=== PATIENT | female | born 1975 | race Caucasian/White ===

== ENCOUNTER 2023-11-15 09:44 | Emergency (ER) | payer OTHER, SELFPAY ==
[2023-11-15 09:48] VITALS: BP 117/71
[2023-11-15 10:01] VITALS: BMI 30.3
[2023-11-15 10:07] VITALS: BP 109/69
--- NOTE | 2023-11-15 10:38 | ED.GENMED ---
History of Present Illness
General
Chief Complaint: Abdominal Pain
Source: patient and spouse
Exam Limitations: none
Time Seen by Provider: 11/15/23 09:59
History of Present Illness
History of Present Illness:
48-year-old female presents not feeling well. She states last week had mild headache that kind of persisted she took some Advil seem to help. Over the weekend she had severe lower abdominal pain. It seemed to get a little better but last night
again had pain in the left flank area. The pain is since improved but she does feel pressure down in her vaginal area. She does have a little bit dysuria and urinary frequency. Patient admits that she also felt little confused and disoriented.
No motor weakness. No vomiting. She did have a little bit of diarrhea over the weekend. Patient states she went to dinner last night and felt well.
Past History
Past History
ED Past Medical History: COPD
ED Past Surgical History: Gynecological
Social History
Tobacco: Smoker
Alcohol: Occasional
Drug: None
Personal:
Living: with family
Employment: Employed
Family History
Family History: Other (Noncontributory )
Phy Exam
Physical Exam
Physical Exam:
CONSTITUTIONAL Patient alert and oriented to person, place and time. Well-appearing. Vital signs reviewed.
HEAD atraumatic, normocephalic.
EYES eyelids normal to inspection, Pupils equally round and reactive to light, Extraocular muscles intact, Conjunctiva normal, Sclera normal.
NECK normal range of motion, Trachea midline, no jugular venous distention.
RESPIRATORY CHEST No respiratory distress noted, Chest expansion equal, Bilateral breath sounds clear.
CARDIOVASCULAR regular rate and rhythm, Heart sounds normal.
ABDOMEN abdomen nontender, Bowel sounds normal. No distention.
BACK normal inspection, no obvious deformities, mild left CVA tenderness
UPPER EXTREMITY range of motion normal, Motor strength normal, no cyanosis, no edema.
LOWER EXTREMITY range of motion normal, Motor strength normal, no cyanosis, no edema.
NEURO Speech normal, No focal motor deficits, [place] coma scale 15, Memory normal, Cranial Nerves intact to screening exam. No pronator drift.
SKIN skin warm, dry, and normal in color.
PSYCHIATRIC patient oriented to person place and time, Normal affect.
Course
Orders/Labs/Results
Orders:
Orders
11/15/23 10:17
Test Result ONCE
11/15/23 10:31
CT Abd/pel Without Iv Or Oral Urgent
Comment:
Reason For Exam: L flank pain
CT Head W/o Iv Contrast Urgent
Comment:
Reason For Exam: AKHTAR, confusion
11/15/23 10:32
0.9% Sodium Chloride 1000 ml [Nss] 1,000 ml IV BOLUS
11/15/23 10:34
Complete Blood Count/With Diff Urgent
Comprehensive Metabolic Panel Urgent
11/15/23 11:01
HCG, Urine Qualitative Screen Urgent
Date Specimen was Collected: 11/15/23
Time Specimen was Collected: 10:59
Urinalysis Reflex To Culture Urgent
Date Specimen was Collected: 11/15/23
Time Specimen was Collected: 10:59
Urine Microscopic Reflex Cult Urgent
Urine Culture Urgent
CELSA Source: U
Specimen Description:
Date Specimen was Collected: 11/15/23
Time Specimen was Collected: 10:59
11/15/23 12:05
CefTRIAXone [Rocephin] 2,000 mg IV NOW STA
Abnormal Lab Results
11/15/23 11/15/23
10:34 11:01
WBC 13.8 H 10^3/uL
(4.8-10.8)
RBC 3.98 L 10^6/uL
(4.20-5.40)
Hct 36.8 L %
(37.0-47.0)
MCH 32.7 H pg
(27.0-31.0)
Abs Immat Gran (auto) 0.1 H 10^3/uL
(0-0.05)
Absolute Neuts (auto) 10.3 H 10^3/uL
(1.4-6.5)
Absolute Monos (auto) 1.2 H 10^3/uL
(0.1-0.6)
Lymphocytes % 14.2 L %
(20.5-51.1)
Ur Occult Blood Reflex 4+ A
(Negative)
Urine Nitrite (Reflex) Positive A
(Negative)
Leukocyte Esterase Rfl 2+ A
(Negative)
Urine RBC 16-20 A /HPF
(0-2)
Urine WBC (Reflex) 30-40 A /HPF
(0-5)
Urine Bacteria (Reflex) Moderate A
(Negative)
Urine Albumin (Reflex) 1+ A
(Neg - Trace)
11/15/23 10:34
11/15/23 10:34
Vital Signs
Initial and Last Documented VS:
Initial Vital Signs
Temp Pulse Resp BP Pulse Ox
98.8 F 78 18 117/71 96
11/15/23 09:48 11/15/23 09:48 11/15/23 09:48 11/15/23 09:48 11/15/23 09:48
Last Documented Vital Signs
Temp Pulse Resp BP Pulse Ox
97.7 F 69 21 99/63 94
11/15/23 10:07 11/15/23 12:12 11/15/23 12:12 11/15/23 12:12 11/15/23 12:12
MDM/Problems Addressed
MDM/Problems Addressed:
UTI, possible passed kidney stone
*Radiology
Radiology exam reviewed: radiology read reviewed
*Pulse Oximetry
Patient hypoxic: no
*Critical Care Note
Total Time (30-74mins, 75-104mins- exclusive of procedures): Not Applicable
Data Reviewed
Source: patient
Patient Management
Discussion with other providers: Tissue Inserter (Case discussed with Dr. Barrera)
Escalation/DeEscalation of care consider admission/obs:
Patient appears well. 48-year-old male presents with symptoms as noted. Clearly does have a UTI and suspect that is the etiology why she has been feeling not well. CT reviewed with was able to review images. He recommends cefdinir and outpatient
treatment. I think this is reasonable as there is no stone or taz obstruction noted but she does have mild hydro. Patient was counseled specifically to return immediately for any progression of symptoms, fevers, change in mentation, vomiting or
any other concerns. Patient and agree.
ED Attending Note
-
Portions of this chart may have been created with voice recognition software.� Occasional wrong word or��sound alike� substitutions may have occurred due to the inherent limitations of voice recognition software.
Discharge Plan
Departure
Patient Disposition: Home (Routine Discharge)
Date of Disposition: 11/15/23
Time of Disposition: 12:34
Patient with high blood pressure during this ER visit?: No
Discharge Problem:
Urinary tract infection
Instructions: Urinary Tract Infection, Adult ED
Prescriptions:
New
cefdinir 300 mg capsule
300 mg PO BID Qty: 20 0RF
No Action
doxycycline hyclate 100 MG capsule
100 mg PO Q12 Qty: 14 0RF
metronidazole 500 MG tablet
500 mg PO BID Qty: 14 0RF
Referrals:
Sommer Morel DO [Family Provider] -
Prem Barrera MD [Active] -
Activity Restrictions/Additional Instructions:
Return immediately for fever, vomiting, worsening symptoms, changes in mentation or any other concerns. Please see your doctor or urology in the next 3 to 5 days for follow-up and reevaluation. In addition, when symptoms have resolved, repeat
imaging may be necessary.
Interventions
Interventions:
*Risk Screen - Suicide Last Done: 11/15/23 09:50
*General Assessment Last Done: 11/15/23 09:50
*Neglect/Abuse Screening Last Done: 11/15/23 09:50
*ED COVID-19 Vaccine History Last Done: 11/15/23 10:01
SA-Buvpuo-Lfrtkerqni Assessment Last Done: 11/15/23 10:01
Discharge Date and Time
Print Language: WELSH
[2023-11-15 10:47] LABS: % Basophils 0.2 % (0-2); % Eosinophils 1.8 % (0-6); % Immature Granulocytes 0.4 % (0-0.5); % Lymphocytes 14.2 % (20.5-51.1); % Monocytes 8.7 % (1.7-9.3); % Neutrophils 74.7 % (42.2-75.2); Absolute Eosinophils 0.3 10^3/uL (0-0.7); Absolute Immature Granulocytes 0.1 10^3/uL (0-0.05); Absolute Monocytes 1.2 10^3/uL (0.1-0.6); Absolute Neutrophils 10.3 10^3/uL (1.4-6.5); Hematocrit 36.8 % (37.0-47.0); Mean Corp Hgb Conc. 35.3 g/dL (33.0-37.0); Mean Corpuscular Hgb 32.7 pg (27.0-31.0); Mean Corpuscular Volume 92.5 fL (81.0-99.0); Mean Platelet Volume 9.4 fL (7.4-10.4); Nucleated Red Blood Cells % 0 %; Platelet Count 269 10^3/uL (130-400); Red Blood Cell Count 3.98 10^6/uL (4.20-5.40); White Blood Cell Count 13.8 10^3/uL (4.8-10.8)
[2023-11-15] MEDS: NSS 1000 IV (11:03)
[2023-11-15 11:14] LABS: ALT (SGPT) 14 U/L (0-35); AST (SGOT) 19 U/L (14-36); Albumin 4.2 g/dl (3.5-5.0); Alkaline Phosphatase 71 U/L (38-126); Blood Urea Nitrogen 16 mg/dl (7-17); Calcium 9.6 mg/dl (8.4-10.2); Carbon Dioxide 23 mmol/L (22-30); Chloride 107 mmol/L (98-107); Estimated Creatinine Clearance 89 ml/min; Glucose 89 mg/dl (70-99); Potassium 4.5 mmol/L (3.5-5.1); Sodium 137 mmol/L (135-145); Total Bilirubin 0.4 mg/dl (0.2-1.3); Total Protein 6.7 g/dl (6.3-8.2); eGFR > 60.00
[2023-11-15 11:15] LABS: HCG, Urine Qualitative Screen Negative
[2023-11-15 11:46] LABS: Urine Albumin 1+ (Neg - Trace); Urine Bilirubin Negative (Negative); Urine Character Very Cloudy (Clear); Urine Color Yellow; Urine Glucose Negative (Negative); Urine Ketone Negative (Negative); Urine Leukocyte 2+ (Negative); Urine Nitrite Positive (Negative); Urine Occult Blood 4+ (Negative); Urine Urobilinogen Negative (Neg - 1+)
[2023-11-15 12:01] LABS: Urine Bacteria Moderate (Negative); Urine Red Blood Cell 16-20 /HPF (0-2); Urine White Cell 30-40 /HPF (0-5)
[2023-11-15 12:12] VITALS: BP 99/63
[2023-11-15] MEDS: ROCEPHIN 2000 MG IV (12:57)
[2023-11-15 13:00] VITALS: BP 112/76
== END 2023-11-15 13:16 | disposition home or self-care (01) ==
LOC: EMR 09:44
PROVIDERS: EMERGENCY PHYSICIAN Emergency Medicine; FAMILY PHYSICIAN Internal Medicine
DX: N39.0 Urinary tract infection, site not specified (principal); F17.200 Nicotine dependence, unspecified, uncomplicated
CPT/HCPCS: 99284; 96374; 96361; 70450; 74176; 80053; 81003; 81015; 81025; 85025; 87077; 87086; 87186

== ENCOUNTER → 2024-01-26 12:16 | Outpatient (REF) | payer OTHER, SELFPAY | LOC: WDC 12:16 | PROVIDERS: ATTENDING PHYSICIAN Internal Medicine | DX: Z12.31 Encounter for screening mammogram for malignant neoplasm of breast (principal) | CPT/HCPCS: 77063; 77067 ==

== ENCOUNTER → 2025-02-12 14:28 | Outpatient (REF) | payer OTHER, SELFPAY | LOC: WDC 14:28 | PROVIDERS: ATTENDING PHYSICIAN Obstetrics & Gynecology; FAMILY PHYSICIAN Internal Medicine | DX: Z12.31 Encounter for screening mammogram for malignant neoplasm of breast (principal) | CPT/HCPCS: 77063; 77067 ==